=== PATIENT | male | born 1985 | race Two or more races ===

== ENCOUNTER 2022-08-18 10:43 | Emergency (ER) | payer OTHER ==
[~2022-08-18] VITALS: Ht 172.7 cm; Wt 81.6 kg
[2022-08-18] MEDS ORDERED: CIPRO500 MG PO (15:07)
[2022-08-18] MEDS ORDERED: KETO10TA2 PO (15:07)
[2022-08-18] MEDS ORDERED: TAMS0.4C PO (15:07)
== END 2022-08-18 15:21 | disposition home or self-care (01) ==
LOC: ER 10:43
DX: R10.31 Right lower quadrant pain (principal); N20.1 Calculus of ureter